=== PATIENT | female | born 2000 ===

== ENCOUNTER 2023-12-23 13:22 | Outpatient (CLI) | payer OTHER | END 2023-12-23 13:26 | disposition home or self-care (01) | LOC: PRENATAL 13:22 | PROVIDERS: ATTEND Obstetrics & Gynecology Maternal & Fetal Medicine | DX: O36.80X0 Pregnancy with inconclusive fetal viability, not applicable or unspecified (principal); O34.219 Maternal care for unspecified type scar from previous cesarean delivery; O09.219 Supervision of pregnancy with history of pre-term labor, unspecified trimester; O14.92 Unspecified pre-eclampsia, second trimester; Z3A.14 14 weeks gestation of pregnancy; Z36.82 Encounter for antenatal screening for nuchal translucency; Z14.8 Genetic carrier of other disease ==

== ENCOUNTER 2024-01-29 11:03 | Outpatient (CLI) | payer OTHER | END 2024-01-29 11:05 | disposition home or self-care (01) | LOC: PRENATAL 11:03 | PROVIDERS: ATTEND Obstetrics & Gynecology Maternal & Fetal Medicine | DX: O35.9XX0 Maternal care for (suspected) fetal abnormality and damage, unspecified, not applicable or unspecified (principal); O35.3XX0 Maternal care for (suspected) damage to fetus from viral disease in mother, not applicable or unspecified; O34.219 Maternal care for unspecified type scar from previous cesarean delivery; O09.219 Supervision of pregnancy with history of pre-term labor, unspecified trimester; O14.90 Unspecified pre-eclampsia, unspecified trimester; Z3A.20 20 weeks gestation of pregnancy ==

== ENCOUNTER → 2024-04-22 10:13 | Outpatient (CLI) | payer OTHER | END | disposition home or self-care (01) | LOC: PRENATAL 10:13 | PROVIDERS: ATTEND Obstetrics & Gynecology Maternal & Fetal Medicine | DX: O26.849 Uterine size-date discrepancy, unspecified trimester (principal); O36.8199 Decreased fetal movements, unspecified trimester, other fetus; O09.219 Supervision of pregnancy with history of pre-term labor, unspecified trimester; O14.90 Unspecified pre-eclampsia, unspecified trimester; Z3A.32 32 weeks gestation of pregnancy ==